=== PATIENT | male | born 1970 | race Caucasian/White ===

== ENCOUNTER → 2017-01-28 | Outpatient (CLI) | payer BC, OTHER | END | disposition home or self-care (01) | LOC: LAB 12:25 | PROVIDERS: ATTEND Dermatology | DX: L40.9 Psoriasis, unspecified (principal) | CPT/HCPCS: 86480; 87340 ==

== ENCOUNTER 2018-04-08 02:16 | Observation (INO) | END 2018-04-10 13:30 | disposition home or self-care (01) ==

== ENCOUNTER → 2018-10-09 | Outpatient (CLI) | payer BC ==
[~2018-10-09] MED LIST: LEVO250T22 PO; MULTI PO
== END | disposition home or self-care (01) ==
LOC: LAB 10:43
PROVIDERS: ATTEND Emergency Medicine
DX: L40.0 Psoriasis vulgaris (principal)
CPT/HCPCS: 86480; 87340

== ENCOUNTER → 2018-10-23 | Outpatient (CLI) | payer BC | END | disposition home or self-care (01) | LOC: LAB 12:07 | PROVIDERS: ATTEND Dermatology | DX: L40.0 Psoriasis vulgaris (principal) | CPT/HCPCS: 86480 ==

== ENCOUNTER 2018-11-17 07:49 | Emergency (ER) | payer BC ==
[~2018-11-17] VITALS: Ht 170.2 cm; Wt 71.8 kg
[2018-11-17 07:52] VITALS: BP 148/81; PULSE 60; RESP 18; Ht 170.2 cm; Wt 71.8 kg
--- NOTE | 2018-11-17 08:15 | ERD ---
ER Documentation Chief Complaint Chief Complaint PCP CALLED PT FOR POSITIVE QUANTIFERON GOLD ( BLOOD TB TEST) HPI 48-year-old male had a blood test to screen for tuberculosis because he is taking an immunomodulating medication. Patient's test came back positive and he presents today for a screening chest x- ray. Patient has no chest pain, cough, hemoptysis, weight loss, fevers. He is asymptomatic. ROS All systems reviewed and are negative except as per history of present illness. Medications Home Meds Active Scripts Levofloxacin* (Levaquin*) 250 Mg Tablet, 250 MG PO DAILY for 11 Days, #11 TAB Prov:DEBORA CROWE 04/10/18 Reported Medications Multivitamins* (Theragran*) 1 Tab Tab, 1 TAB PO DAILY, TAB 04/08/18 Allergies Allergies: Coded Allergies: No Known Allergies (Unverified Allergy, Unknown, 04/08/18) PMhx/Soc History of Surgery: No Anesthesia Reaction: No Hx Neurological Disorder: No Hx Respiratory Disorders: No Hx Cardiac Disorders: No Hx Psychiatric Problems: No Hx Miscellaneous Medical Probl: No Hx Alcohol Use: Yes Hx Substance Use: No Hx Tobacco Use: No Physical Exam Vitals Vital Signs Date Temp Pulse Resp B/P (MAP) Pulse Ox O2 O2 Flow FiO2 Time Delivery Rate 11/17/18 97.0 60 18 148/81 100 07:52 (103) Physical Exam General: well developed, well nourished, in no distress. Neuro: Normal speech, gait, balance Procedures/MDM Patient was taken to a room, seen and examined Medical decision m[age]-year-old male presents the emergency department for screening chest x-ray which is negative for tuberculosis. Given his complete lack of symptoms, this rules out the disease. Departure Diagnosis: Primary Impression: Screening-pulmonary TB Condition: Good Patient Instructions: Medical Screening Exam, Nonurgent KALEB ROGERS Nov 17, 2018 08:15
== END 2018-11-17 08:36 | disposition home or self-care (01) ==
LOC: E/R 07:49
DX: Z11.1 Encounter for screening for respiratory tuberculosis (principal)
CPT/HCPCS: 71045